=== PATIENT | male | born 1990 | race Caucasian/White ===

== ENCOUNTER 2017-02-17 13:24 | Emergency (ER) | payer MEDICAID, OTHER ==
[2017-02-17 14:16] VITALS: BP 129/63
--- NOTE | 2017-02-17 15:02 | ERNOTE ---
Allergy Symptoms - ER Presenting Symptoms: skin rash Time Seen by Provider: 02/17/17 14:52 Source: patient Exam Limitations: no limitations Immunizations: IMMUNIZATION HX Immunizations Up to Date Yes History of Influenza Vaccine No Hx Pneumococcal Vaccination No Allergies/Adverse Reactions: Allergies No Known Allergies Allergy (Unverified 02/17/17 14:10) Home Medications: HOME MEDICATIONS Hydrocortisone [Hydrocortisone 1% Cream] 1 appl TP BID #30 gm 02/17/17 [Last Taken Unknown] Melatonin 1 mg PO HS 02/17/17 [Last Taken Unknown] - History of Present Illness Narrative: papular rash started on his left chest and spread to the right, itching Timing: Present: getting worse Location skin rash/itching: Present: trunk Identified cause?: No Review of Systems - Review of Systems Constitutional: Absent: recent illness, fever ENT: Absent: nose congestion, sore throat Respiratory: Absent: cough Skin: Present: See HPI All Other Systems: All systems neg except as marked - Patient's Past Medical History Patient History - Medical: ADHD, Anxiety, Depression Patient History - Cardiac/Respiratory: No pertinent hx Patient History - Cancer: No Hx of Cancer Patient History - Surgical Procedures: T & A Patient History - Other: None - Social History Living Situations: home Abuse History: No History of abuse Psych History: Hx of Anxiety, Hx of Depression Smoking Status: Current every day smoker Have you smoked in the past 12 months: Yes Do you dip or chew tobacco: No Patient requests Smoking Cessation Consult: No Initiate information on Smoking Cessation: No Alcohol Use: none Drug Use: none - Immunizations Immunizations Up to Date: Yes Hx Pneumococcal Vaccination: No History of Influenza Vaccine: No Physical Exam - Physical Exam General Appearance: Present: wd/wn, alert, no apparent distress Eye Exam: Normal inspection: bilateral, PERRL: bilateral Ears, Nose, Throat: Present: normal ENT inspection Neck: Present: normal inspection, nontender Respiratory: Present: no respiratory distress, normal breath sounds, lungs clear Cardiovascular/Chest: Present: regular rate, rhythm, no murmur, normal peripheral pulses Back Exam: Present: normal inspection, normal range of motion, no vertebral tenderness Extremity Exam: Present: normal inspection, no edema Neurological Exam: Present: alert, oriented, normal mood/affect, no motor/ sensory deficits Skin Exam: Present: other - papular rash on upper chest Lymphatic Exam: Present: no adenopathy ED Progress - Vital Signs Vital Signs: Vital Signs 02/17/17 14:10 Temperature 37.1 C Pulse Rate 82 Respiratory 16 Rate Blood Pressure 129/63 O2 Sat by Pulse 98 Oximetry - Progress/Reassessment Chief Complaint: Allergic Reaction Departure Clinical Impression: Contact dermatitis Qualifiers: Contact dermatitis type: allergic Contact dermatitis trigger: unspecified trigger Qualified Code(s): L23.9 - Allergic contact dermatitis, unspecified cause - Departure Disposition: Home self-care Condition: Good Instructions: Contact Dermatitis, [id number] Referrals: Hamida Griggs DO [Primary Care Provider] - Prescriptions: Hydrocortisone [Hydrocortisone 1% Cream] 1 appl TP BID #30 gm
--- OUTSIDE RECORDS SUMMARY | 2017-02-17 15:06 | XMS REPORT | Continuity of Care Document ---
:1990 Author Organization [facility] [place] [address] Care Team Providers Name Role Phone Unavailable Primary Care Provider Unavailable Source Comments This disclosure is being made pursuant to the [employer] program and maynot contain all information available regarding this patient.[facility] Active Allergies and Adverse Reactions Not on File Current Medications Be aware that medications may not be up to date as of this document. Alwaysverify current medications with the patient. Not on file Active Problems Not on file Social History Tobacco Use Types Packs/Day Years Used Date Never Assessed Plan of Care Health Maintenance Due Date Last Done Comments HPV Vaccine ([id number]) (1 of 3 - Male 3 Dose Series) 2002 Retired-Pertussis Vaccine Adult 2010 Retired-Tetanus Vaccine Adult 2010 Retired-INFLUENZA VACCINE 08/01/2015 Results from Last 3 Months Not on file
--- OUTSIDE RECORDS SUMMARY | 2017-02-17 15:07 | XMS REPORT | Continuity of Care Document ---
:1990 Author Organization [facility] ([facility]) Address [address] [place] [address] Phone [phone] Care Team Providers Name Role Phone Unavailable Primary Care Provider Unavailable Source Comments This disclosure is being made pursuant to the Care Everywhere program, applicable federal and state laws, and may not contain all informaitonavailable regarding this patient.[facility] ([facility]) Active Allergies and Adverse Reactions No Active Allergies Current Medications Not on file Active Problems Problem Noted Date Attention deficit disorder with hyperactivity(314.01) 08/05/2003 Other speech disturbance 08/05/2003 Problems with communication (including speech) 08/03/2003 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 Social History Tobacco Use Types Packs/Day Years Used Date Never Assessed Last Filed Vital Signs Vital Sign Reading Time Taken Blood Pressure - - Pulse - - Temperature - - Respiratory Rate - - Height 1.491 m (4' 10.7") 07/29/2003 10:59 AM CDT Weight 41.295 kg (91 lb 0.6 oz) 07/29/2003 10:59 AM CDT Body Mass Index 18.58 07/29/2003 10:59 AM CDT Oxygen Saturation - - Plan of Care Health Maintenance Due Date Last Done Comments Hepatitis B Vaccine (1 of 3 - Primary Series) 1991 HPV Vaccine (1 of 3 - Male 3 Dose Series) 2002 Tdap Vaccine 2002 Lipid Disorder Screening 2009 MMR Vaccine 2009 Td Vaccine 2009 Varicella Vaccine (1 of 2 - Adult - No Evidence of 2009 Immunity) Influenza Vaccine: Seasonal (#1) 07/01/2016 Results from Last 3 Months Not on file
== END 2017-02-17 15:13 | disposition home or self-care (01) ==
LOC: ER 13:24
DX: R21 Rash and other nonspecific skin eruption (principal); L23.9 Allergic contact dermatitis, unspecified cause; Z72.0 Tobacco use

== ENCOUNTER 2017-04-22 01:33 | Emergency (ER) | payer OTHER ==
[2017-04-22 01:53] VITALS: BP 131/61
--- OUTSIDE RECORDS SUMMARY | 2017-04-22 02:02 | XMS REPORT | Continuity of Care Document ---
:1990 Author Organization [employer] [place] [address] Care Team Providers Name Role Phone Unavailable Primary Care Provider Unavailable Source Comments This disclosure is being made pursuant to the [employer] program and maynot contain all information available regarding this patient.[facility] Active Allergies and Adverse Reactions Not on [...]
--- OUTSIDE RECORDS SUMMARY | 2017-04-22 02:02 | XMS REPORT | Continuity of Care Document ---
:1990 Author Organization [facility] ([facility]) Address [address] [place] [address] Phone [phone] Care Team Providers Name Role Phone Unavailable Primary Care Provider Unavailable Source Comments This disclosure is being made pursuant to the Care Everywhere program, applicable federal and state laws, and may not contain all informaitonavailable regarding this patient.[facility] ([facility]) Active Allergies and Adverse Reactions No [...]
--- NOTE | 2017-04-22 02:11 | ERNOTE ---
ENT HPI Presenting Symptoms: dental pain Time Seen by Provider: 04/22/17 01:52 Source: patient Exam Limitations: no limitations - Immun/Allergies/Home Medications Immunizations: IMMUNIZATION HX Immunizations Up to Date Yes History of Influenza Vaccine No Hx Pneumococcal Vaccination No Allergies/Adverse Reactions: Allergies Allergy/AdvReac Type Severity Reaction Status Date / Time No Known Allergies Allergy Unverified 02/17/17 14:10 Home Medications: HOME MEDICATIONS Melatonin 1 mg PO HS 02/17/17 [Last Taken Unknown] - History of Present Illness Narrative: Pt states he began to have dental pain 1 hour ago. Pt does not have any OTC medications with him and thus checked into the ED. Severity: Present: moderate ENT Location: Present: dental - right lower 3rd molar Prearrival Treatment: Present: no prearrival treatment Associated Symptoms - ENT: Reports: denies symptoms Review of Systems - Review of Systems Constitutional: Absent: recent illness, fever EYE: Present: no symptoms reported ENT: Present: See HPI Respiratory: Present: no symptoms reported Cardiology: Present: no symptoms reported Gastrointestinal/Abdominal: Present: no symptoms reported Genitourinary: Present: no symptoms reported Musculoskeletal: Present: no symptoms reported Skin: Present: no symptoms reported Neurological: Present: no symptoms reported Endocrine: Present: no symptoms reported Hematologic/Lymphatic: Present: no symptoms reported Psych: Present: no symptoms reported - Patient's Past Medical History Patient History - Medical: ADHD, Anxiety, Depression Patient History - Cardiac/Respiratory: No pertinent hx Patient History - Cancer: No Hx of Cancer Patient History - Surgical Procedures: T & A Patient History - Other: None - Social History Living Situations: significant other Abuse History: No History of abuse Psych History: Hx of Anxiety, Hx of Depression Smoking Status: Current every day smoker Alcohol Use: none Drug Use: none - Immunizations Immunizations Up to Date: Yes Hx Pneumococcal Vaccination: No History of Influenza Vaccine: No Physical Exam - Physical Exam General Appearance: Present: wd/wn, alert, no apparent distress Eye Exam: EOMI: bilateral - appear to be intact bilaterall but patient frequently closes his right eye and keeps his left eye open Ears, Nose, Throat: Present: cerumen impaction - on the left and moderate cerumen in the EAC on the right, other - right 3rd lower molar is decayed centrally to the edge of the tooth. some swollen and mildy erythematous. Tooth is tender to tap with a tongue blade Neck: Present: normal inspection, nontender, supple. Absent: lymphadenopathy (R ) Respiratory: Present: no respiratory distress, lungs clear Cardiovascular/Chest: Present: regular rate, rhythm, no murmur Extremity Exam: Present: normal inspection, normal range of motion Neurological Exam: Present: alert, oriented Skin Exam: Present: normal color, warm/dry ED Progress - Results and Orders Patient's Lab Results:: I have reviewed the patient's lab results. - Vital Signs Patient's Vital Signs:: I have reviewed the patient's vital signs. Vital Signs: Vital Signs 04/22/17 04/22/17 01:44 01:50 Temperature 36.3 C L Pulse Rate 88 72 Respiratory 16 16 Rate Blood Pressure 131/61 124/43 O2 Sat by Pulse 97 96 Oximetry - Progress/Reassessment Chief Complaint: Dental Problem Progress:: Unchanged Progress Note-Subjective: 04/22/17 02:08 Offered patient an NSAID (ketorolac) but pt stated "all I want is tylenol". acetaminophen ordered 1000 mg PO Departure Clinical Impression: Pain, dental - Departure Disposition: Home self-care Condition: Fair Instructions: Dental Caries Additional Instructions: brush teeth carefully every day. See a dentist as soon as possible Referrals: Hamida Griggs DO [Primary Care Provider] -
[2017-04-22] MEDS ORDERED: ACETAMINOPHEN 500 MG TABLET PO ONE (02:14)
== END 2017-04-22 02:22 | disposition home or self-care (01) ==
LOC: ER 01:33
DX: K08.89 Other specified disorders of teeth and supporting structures (principal); F17.200 Nicotine dependence, unspecified, uncomplicated